=== PATIENT | female | born 1970 | race Caucasian/White ===

== ENCOUNTER → 2020-09-08 16:27 | Outpatient (BNVA) | payer OTHER, SELFPAY | PROVIDERS: Family Provider Nurse Practitioner; PCP Nurse Practitioner; Visit Provider Nurse Practitioner Family | DX: Z11.59 Encounter for screening for other viral diseases (principal) | CPT/HCPCS: 87635 ==

== ENCOUNTER 2020-09-10 08:23 | Emergency (ER) | payer OTHER, SELFPAY ==
[2020-09-10 08:30] VITALS: BP 165/98; PULSE 112; RESP 18; TEMP 37.3; O2SAT 99; BMI 25.6
--- NOTE | 2020-09-10 08:30 | ECG_ITS ---
[facility] Test Date: 2020-09-10 Pat Name: Raymond Suazo Department: Room: Gender: Female Attending Radiologist: : 1970 Requested By: Tresa Solomon Order Number: [id number] Reading MD: BRIAN DRAPER Measurements Intervals [place] Rate: 82 P: 35 KS: 131 QRS: 100 QRSD: 95 T: 85 QT: 383 QTc: 449 Interpretive Statements SINUS RHYTHM BORDERLINE RIGHT AXIS DEVIATION [QRS AXIS > 90] No previous ECG available for comparison Electronically Signed On 09-10-2020 18:27:22 CDT by BRIAN DRAPER [id number]
--- NOTE | 2020-09-10 08:30 | XRR_ITS ---
PROCEDURE INFORMATION: Exam: XR Chest, 1 View Exam date and time: 09/10/2020 8:59 AM Age: 50 years old Clinical indication: Shortness of breath; Additional info: Covid TECHNIQUE: Imaging protocol: XR of the chest Views: 1 view. COMPARISON: No relevant prior studies available. FINDINGS: Lungs: Hyperinflation, without acute airspace disease. Pleural space: No pleural effusion. Heart/Mediastinum: Epicardial fat without cardiomegaly. Bones/joints: Unremarkable. XR/XR chest 1V portable [id number] IMPRESSION: Hyperinflation, without acute airspace or pleural disease.
--- NOTE | 2020-09-10 08:51 | ED_ITS ---
HPI - COVID General: Chief Complaint: COVID symptoms Stated Complaint: Fever/SOB/Muscle Aches/Nausea Time Seen by Provider: 09/10/20 08:29 Triage information: Has fever, cough or shortness of breath . Exposure to COVID + person last 14 days History of Present Illness: HPI Narrative: This patient is a 50-year-old female who presents today with Covid symptoms. Her daughter lives in [place] and came to visit for the weekend. She was there Saturday and Saturday. On Saturday night her daughter started feeling ill and went to be tested the next day. Her test was positive. The patient started having symptoms on Saturday but she is not sure how much her symptoms are related to anxiety versus Covid. She has had a cough and some mild shortness of breath. She has had chest pain and said last night she felt she was having a heart attack. She is had pain across her upper back. She did have a fever on of 101. That is the only day that she is had fever. This morning her daughter who lives with her took her blood pressure and said it was very high. She is so anxious and concerned that she decided to come to the ER. She is on day 6 of symptoms. She does not have any comorbidities related to Covid. She did have a test done on 08 September but the results are still pending. Her lives with her and is also having a bad cough. Her daughter, son-in-law and 9-month-old grandchild are currently living with them while they are building a house. They all have had cough and or fever as well. They all of been tested but none of those results are back. The patient does have a history of anxiety and is extremely worried about all of her family members and herself. complaint: reported COVID exposure and has COVID symptoms Prior covid testing: yes, results pending at [facility] location COVID 19 common symptoms: positive fever(s), cough, dyspnea, fatigue, body aches and nausea; negative headache(s) COVID 19 other sytmptoms: positive chest pain Onset (ago): day(s) (6) Severity: moderate Treatment prior to arrival: acetaminophen and cold medicine (Benadryl) COVID Results: SARS-CoV-2 RNA (RT-PCR) Pending 09/08/20 16:09/08/20 Review of Systems General: Reports: 10 or more systems reviewed and unremarkable except in HPI and below Const: Reports: fever(s), body aches and fatigue Eyes: Denies: change in vision ENMT: Denies: odynophagia Card: Reports: chest pain Resp: Reports: dyspnea GI: Reports: nausea : Denies: flank pain or difficulty voiding Musc: Denies: neck pain or back pain Skin/Breast: Denies: rash Neuro: Denies: headache(s), numbness in extremities or weakness in extremities Psych: Reports: anxiety and sleeping less Edwin/Lymph: Denies: easy bruising or easy bleeding Physical Exam Const: COMMON NORMALS: patient oriented x3, no limitations and alert GENERAL APPEARANCE: cooperative and anxious (Tearful) HENMT: HEAD & SCALP: normal to inspection FACE & SINUS: normal facial exam Eye: GENERAL EYE: appearance normal, both eyes and all related structures Neck/C-Spine: COMMON NORMALS: supple, no meningeal signs and no JVD Chest: COMMONS NORMALS: normal inspection of the chest Resp: COMMON NORMALS: normal respiratory effort, No use of accessory muscles and clear to auscultation bilaterally AUSCULTATION: clear to auscultation bilaterally Cardio: COMMON NORMALS: no JVD, regular rate, regular rhythm and No murmurs present (Cardio) RATE: regular rate RHYTHM: regular rhythm GI: COMMON NORMALS: Normal to inspection, nondistended, normoactive bowel sounds present, Soft to palpation and non-tender INSPECTION: Yes normal to inspection AUSCULTATION: Yes normoactive bowel sounds PALPATION: Yes Soft to palpation Back/Pelvis: COMMON NORMALS: thoracic and lumbar spine normal to inspection Extremity: COMMON NORMALS: normal to inspection Neuro: COMMON NORMALS: patient oriented x3, moves all extremities, no focal motor deficits and no sensory deficits noted SENSORIUM/ORIENTATION: Yes alert MENINGEAL SIGNS: Yes no meningeal signs Psych: COMMON NORMALS: mental status grossly normal, cooperative and normal affect Skin: COMMON NORMALS: no rashes or lesions noted and turgor normal GENERAL SKIN EXAM: no rashes or lesions noted and turgor normal Course ED course: This patient's labs actually look remarkably normal. Her chest x- ray is completely normal. Her sats remained 99 to 100% while in the department. Her EKG and troponins are negative. I feel like most of her symptoms are related to anxiety although I am certain that she does have Covid. During her ER stay apparently her got his test results back and he is positive as well. We discussed managing anxiety. We discussed management of Covid at home. We discussed the various treatments that are recommended only once hypoxia is noted. I sent her home with a pulse ox of that she can monitor her own pulse ox as well as her family. She requested some Zofran for nausea and I did write her prescription for that. She was much calmer and hopefully reassured at the time of discharge. Vital Signs: Vital signs: Vital Signs Temperature 99.1 F 09/10/20 08:30 Pulse Rate 84 09/10/20 10:29 Respiratory Rate 18 09/10/20 10:29 Blood Pressure 127/87 09/10/20 10:29 Pulse Oximetry 98 09/10/20 10:29 MDM - COVID Lab Data Result diagrams: 09/10/20 08:56 09/10/20 08:56 Labs: Lab Results 09/10/20 09/10/20 09/10/20 Range/Units 08:56 08:56 08:56 WBC 8.0 (4.0-10.0) 10^3/uL RBC 4.67 (4.1-5.3) 10^6/uL Hgb 13.9 (11.5-15.3) g/dL Hct 42.8 (37.0-47.0) % MCV 91.6 (81-99) fL MCH 29.8 (28.0-34.0) pg MCHC 32.5 (30.0-36.0) g/dL RDW 12.4 (12.1-15.1) % Plt Count 393 (130-400) 10^3/cmm MPV 9.8 (7.4-10.4) fL Neut % (Auto) 80.7 % Lymph % (Auto) 12.8 % [place] % (Auto) 5.6 % Eos % (Auto) 0.3 % Baso % (Auto) 0.3 % Neut # (Auto) 6.46 (1.8-7.7) 10^3/uL Lymph # (Auto) 1.0 (0.8-4.8) 10^3/uL [place] # (Auto) 0.5 (0.2-0.9) 10^3/uL Eos # (Auto) 0.0 (0.0-0.8) 10^3/uL Baso # (Auto) 0.0 (0.0-0.1) 10^3/uL Nucleated RBC % (auto) 0 % Nucleated RBCs # 0.0 /100WBC Fibrinogen 346 (174-498) mg/dL D-Dimer 0.43 (0-0.59) ug/mIFEU Sodium 140 (136-145) mmol/L Potassium 3.8 (3.5-5.1) mmol/L Chloride 104 (98-107) mmol/L Carbon Dioxide 23 (22-29) mmol/L Anion Gap 16.8 (5-19) BUN 7 (6-20) mg/dL Creatinine 0.6 (0.5-0.9) mg/dL GFR Calculation 106.7 (90-130) mL/min Glucose 107 (65-115) mg/dL Calculated Osmolality 288 (285-295) mOsm/kg Lactic Acid (0.5-2.2) mmol/L Calcium 9.6 (8.5-10.5) mg/dL Ferritin 13 L (15-150) ng/mL Total Bilirubin 0.3 (0.15-1.2) mg/dL AST 15 (0-32) U/L ALT 11 (0-33) U/L Alkaline Phosphatase 92 (35-105) IU/L Lactate Dehydrogenase 193 (135-214) U/L Troponin T Baseline (0-10) ng/L C-Reactive Protein 1.3 (0.0-4.9) mg/L NT-Pro-B Natriuret Pep 13 (0-125) pg/mL Total Protein 7.8 (6.6-8.7) g/dL Albumin 4.8 (3.5-5.2) g/dL Globulin 3.0 (1.3-4.6) g/dL Procalcitonin 0.03 (0-0.5) ng/mL 09/10/20 09/10/20 Range/Units 08:56 08:56 WBC (4.0-10.0) 10^3/uL RBC (4.1-5.3) 10^6/uL Hgb (11.5-15.3) g/dL Hct (37.0-47.0) % MCV (81-99) fL MCH (28.0-34.0) pg MCHC (30.0-36.0) g/dL RDW (12.1-15.1) % Plt Count (130-400) 10^3/cmm MPV (7.4-10.4) fL Neut % (Auto) % Lymph % (Auto) % [place] % (Auto) % Eos % (Auto) % Baso % (Auto) % Neut # (Auto) (1.8-7.7) 10^3/uL Lymph # (Auto) (0.8-4.8) 10^3/uL [place] # (Auto) (0.2-0.9) 10^3/uL Eos # (Auto) (0.0-0.8) 10^3/uL Baso # (Auto) (0.0-0.1) 10^3/uL Nucleated RBC % (auto) % Nucleated RBCs # /100WBC Fibrinogen (174-498) mg/dL D-Dimer (0-0.59) ug/mIFEU Sodium (136-145) mmol/L Potassium (3.5-5.1) mmol/L Chloride (98-107) mmol/L Carbon Dioxide (22-29) mmol/L Anion Gap (5-19) BUN (6-20) mg/dL Creatinine (0.5-0.9) mg/dL GFR Calculation (90-130) mL/min Glucose (65-115) mg/dL Calculated Osmolality (285-295) mOsm/kg Lactic Acid 2.2 (0.5-2.2) mmol/L Calcium (8.5-10.5) mg/dL Ferritin (15-150) ng/mL Total Bilirubin (0.15-1.2) mg/dL AST (0-32) U/L ALT (0-33) U/L Alkaline Phosphatase (35-105) IU/L Lactate Dehydrogenase (135-214) U/L Troponin T Baseline 6 (0-10) ng/L C-Reactive Protein (0.0-4.9) mg/L NT-Pro-B Natriuret Pep (0-125) pg/mL Total Protein (6.6-8.7) g/dL Albumin (3.5-5.2) g/dL Globulin (1.3-4.6) g/dL Procalcitonin (0-0.5) ng/mL COVID Results: SARS-CoV-2 RNA (RT-PCR) Pending 09/08/20 16:27 09/08/20 Discharge Plan Discharge Patient Disposition: Home Clinical Impression: Suspected severe acute respiratory syndrome coronavirus 2 (SARS-CoV-2) infection, Anxiety Condition: Stable Prescriptions: New ondansetron HCl 4 mg tablet 4 mg PO Q6H PRN (Reason: nausea and vomiting) Qty: 10 RF: 0 No Action aspirin 81 mg Tablet,Delayed Release (Dr/Ec) 81 mg PO DAILY RF: 0 Tylenol Extra Strength 500 mg Tablet 1,000 mg PO PRN RF: 0 Benadryl 25 mg Capsule 12.5 mg PO PRN RF: 0 ibuprofen 200 mg Tablet 400 mg PO PRN RF: 0 Vitamin C 1 tab PO DAILY RF: 0 Vitamin D3 1 tab PO DAILY RF: 0 Discharge Orders: Discharge Order (Routine); Ordered 09/10/20 Ordered By: Tresa Park Referrals: Melissa Bnetley, [facility] [Primary Care Provider] - Discharge Diet: Usual diet Discharge Activity: Resume usual activity Patient Instructions: Viral Syndrome (ED) Activity Restrictions/Additional Instructions: Rest and drink plenty of fluids. Use the pulse oximeter to check your oxygen level (and that of your family members). Oxygen saturations less than 90 should prompt a visit to the ER. Return as well if feeling worse in any way. Some chxw-ltt-wnmdqfs medicines and supplements that may possibly help with reducing the severity of infection are zinc, famotidine or Pepcid, vitamin D. You can research the evidence behind these and decide for yourself whether you want to use them. You can use Tylenol for fever and body aches and cifr-pzh-yyxpwya cough medicines for other symptoms as well. Discharge Date/Time: 09/10/20 10:33 Coding Level of Care Code ED Softlines Supervisor for Marilia Fwd Exam Comprehensive
[2020-09-10] MEDS: dexamethasone 4 mg/mL INJ 6 MG IVP (09:00)
[2020-09-10 09:06] VITALS: O2SAT 96
[2020-09-10 09:10] LABS: Basophils % 0.3 %; Eosinophils % 0.3 %; Hematocrit 42.8 % (37.0-47.0); Hemoglobin 13.9 g/dL (11.5-15.3); Lymphocytes % 12.8 %; Mean Corpuscular HGB Conc 32.5 g/dL (30.0-36.0); Mean Corpuscular Hemoglobin 29.8 pg (28.0-34.0); Mean Corpuscular Volume 91.6 fL (81-99); Mean Platelet Volume 9.8 fL (7.4-10.4); Monocytes # 0.5 10^3/uL (0.2-0.9); Monocytes % 5.6 %; Neutrophils # 6.46 10^3/uL (1.8-7.7); Neutrophils % 80.7 %; Nucleated Red Blood Cells % 0 %; Platelet Count 393 10^3/cmm (130-400); Red Blood Count 4.67 10^6/uL (4.1-5.3); Red Cell Distribution Width 12.4 % (12.1-15.1)
[2020-09-10 09:22] VITALS: BP 153/95; PULSE 87; RESP 16; O2SAT 98
[2020-09-10 09:27] LABS: D Dimer 0.43 ug/mIFEU (0-0.59)
[2020-09-10 09:38] LABS: Lactic Sepsis W/Reflex 2.2 mmol/L (0.5-2.2); Troponin(5th) Baseline 6 ng/L (0-10)
[2020-09-10 09:44] LABS: NT Pro B Type Natriuretic Pept 13 pg/mL (0-125); Procalcitonin 0.03 ng/mL (0-0.5)
[2020-09-10 09:54] LABS: Fibrinogen 346 mg/dL (174-498)
[2020-09-10 09:55] LABS: Alanine Aminotransferase 11 U/L (0-33); Albumin Level 4.8 g/dL (3.5-5.2); Alkaline Phosphatase 92 IU/L (35-105); Aspartate Amino Transferase 15 U/L (0-32); Blood Urea Nitrogen 7 mg/dL (6-20); C Reactive Protein 1.3 mg/L (0.0-4.9); Calcium 9.6 mg/dL (8.5-10.5); Carbon Dioxide 23 mmol/L (22-29); Chloride 104 mmol/L (98-107); Ferritin 13 ng/mL (15-150); Glomerular Filtration Rate 106.7 mL/min (90-130); Glucose 107 mg/dL (65-115); Osmolality Calculated 288 mOsm/kg (285-295); Sodium 140 mmol/L (136-145); Total Bilirubin 0.3 mg/dL (0.15-1.2); Total Protein 7.8 g/dL (6.6-8.7)
[2020-09-10 09:59] LABS: Anion Gap 16.8 (5-19); Potassium 3.8 mmol/L (3.5-5.1)
[2020-09-10 10:01] LABS: Lactate Dehydrogenase 193 U/L (135-214)
[2020-09-10 10:29] VITALS: BP 127/87; PULSE 84; RESP 18; O2SAT 98
[2020-09-10 10:46] LABS: Reflex Lactate Order REFLEX LACTIC ORDERD
== END 2020-09-10 10:33 | disposition home or self-care (01) ==
PROVIDERS: Emergency Provider Emergency Medicine; PCP Nurse Practitioner
DX: Z20.828 Contact with and (suspected) exposure to other viral communicable diseases (principal); F41.9 Anxiety disorder, unspecified; Z79.82 Long term (current) use of aspirin
CPT/HCPCS: 12345; 71045; 80053; 82728; 83605; 83615; 83880; 84145; 84484; 85025; 85378; 85384; 86140; 93005; 96374; 96375; 99283; 99284; J1100

== ENCOUNTER → 2021-01-31 10:03 | Outpatient (BNVA) | payer OTHER, SELFPAY | PROVIDERS: PCP Nurse Practitioner; Visit Provider Nurse Practitioner Family | DX: R30.0 Dysuria (principal) | CPT/HCPCS: 81003; 87086 ==

== ENCOUNTER → 2021-04-28 09:45 | Outpatient (BNVA) | payer OTHER, SELFPAY | PROVIDERS: PCP Nurse Practitioner; Visit Provider Obstetrics & Gynecology | DX: N93.9 Abnormal uterine and vaginal bleeding, unspecified (principal); N84.1 Polyp of cervix uteri; Z12.4 Encounter for screening for malignant neoplasm of cervix; Z12.39 Encounter for other screening for malignant neoplasm of breast | CPT/HCPCS: 84443; 85025; 88175; 88305 ==

== ENCOUNTER → 2021-05-01 14:00 | Outpatient (BNVA) | payer OTHER, SELFPAY | PROVIDERS: PCP Nurse Practitioner; Visit Provider Obstetrics & Gynecology | DX: N93.9 Abnormal uterine and vaginal bleeding, unspecified (principal) | CPT/HCPCS: 76830; 85018 ==

== ENCOUNTER → 2021-05-04 14:04 | Outpatient (BNVA) | payer OTHER, SELFPAY | PROVIDERS: PCP Nurse Practitioner; Visit Provider Obstetrics & Gynecology | DX: N93.9 Abnormal uterine and vaginal bleeding, unspecified (principal) | CPT/HCPCS: 76830 ==

== ENCOUNTER → 2021-06-16 08:32 | Outpatient (BNVA) | payer OTHER, SELFPAY | PROVIDERS: PCP Nurse Practitioner; Visit Provider Obstetrics & Gynecology | DX: Z20.822 Contact with and (suspected) exposure to COVID-19 (principal); N84.0 Polyp of corpus uteri; N93.9 Abnormal uterine and vaginal bleeding, unspecified; R93.89 Abnormal findings on diagnostic imaging of other specified body structures | CPT/HCPCS: 87635 ==

== ENCOUNTER 2021-06-20 06:32 | Day surgery (SDC) | payer OTHER, SELFPAY ==
[2021-06-19 15:08] VITALS: BMI 24.7
[2021-06-20 06:54] VITALS: BP 145/88; PULSE 72; RESP 16; TEMP 36.6; O2SAT 100
[2021-06-20] MEDS: sodium chloride 0.9% 1,000 ML 30 ML IV (07:10)
[2021-06-20] MEDS: ketorolac 30 mg/mL INJ IVP (07:26)
--- NOTE | 2021-06-20 07:27 | P.ANESASSM_ITS ---
Pre-Anesthetic Assessment Pre-Anesthetic Assessment: Height/Weight: Height 1.6 m Weight 63.503 kg Temp Pulse Resp BP Pulse Ox 97.9 F 72 16 145/88 100 06/20/21 06:54 06/20/21 06:54 06/20/21 06:54 06/20/21 06:54 06/20/21 06:54 Preop Diagnosis: thickened endometrium, endometrial polyp Proposed Procedure: Operation Date: 06/20/21 08:20 Proposed Procedures p Hysteroscopy w/ Myosure [id number] n93.9 n84.0 r93.89(Not Applicable) - Jessica Siddiqui MD s Dilation And Curettage (D&C)(Not Applicable) - Jessica Siddiqui MD Was Beta Mallika taken within 24 hours: N/A Was Clonidine taken within 24 hours: N/A Last intake: Intake Last Liquid Date 06/19/21 Last Liquid Time 20:30 Last Solid Date 06/19/21 Last Solid Time 18:00 Social: Social History: No alcohol and No tobacco Exam: Pre-Anes Outpt Exam: alert, oriented x 3, clear to auscultation bilaterally and regular rate & rhythm Airway: Submandibular: WNL Cervical ROM: WNL MP: 2 Dentition: Full History/ROS: No significant history except as noted CV/HEM: CV/HEM: Anemia Comments: Abnormal uterine bleeding Anesthetic Plan: ASA status: 2 Anesthesia: General Risk of > 500 ml blood loss (7ml/kg in children): No Meds/Allergies 2 Current Medications: Current Medications Generic Name Dose Route Start Last Admin Trade Name Freq PRN Reason Stop Dose Admin Sodium Chloride 1,000 mls @ 30 ml s/hr 06/20/21 06:45 06/20/21 07:10 Sodium Chloride 0.9% IV 06/21/21 06:44 30 mls/hr .Q24H FABIO Administration PFSH Anesthesia PFSH: Family History Father Cancer kidney Diabetes Hyperlipidemia Hypertension Family/Other No problems noted. Mother , age 32 complications from tumor Brain tumor Brother Hyperlipidemia Sister Hyperlipidemia Grandmother Stroke Paternal Denies family history of Ovarian cyst Clotting disorder Thyroid disease Social History Smoking and tobacco status: never smoked Second hand smoke exposure: No Alcohol intake: never Adopted: No Caregiver/support person: Yes Lives independently: Yes Marital status: service: No History of recent travel: No Special berenice needs: No Agree to transfusion: Yes Female Reproductive History: Date of last menstrual period: 05/13/21 Data Anesthesia Cardiac Studies: No Data to Display
[2021-06-20 07:33] LABS: OR HCG Qualitative Urine Negative (Negative)
[2021-06-20 07:47] LABS: Basophils % 0.7 %; Eosinophils # 0.1 10^3/uL (0.0-0.8); Eosinophils % 1.6 %; Hematocrit 40.9 % (37.0-47.0); Lymphocytes # 1.5 10^3/uL (0.8-4.8); Lymphocytes % 26.8 %; Mean Corpuscular HGB Conc 31.8 g/dL (30.0-36.0); Mean Corpuscular Volume 94.2 fL (81-99); Mean Platelet Volume 10.6 fL (7.4-10.4); Monocytes # 0.4 10^3/uL (0.2-0.9); Monocytes % 7.7 %; Neutrophils # 3.58 10^3/uL (1.8-7.7); Neutrophils % 62.8 %; Nucleated Red Blood Cells % 0 %; Platelet Count 260 10^3/cmm (130-400); Red Blood Count 4.34 10^6/uL (4.1-5.3); White Blood Count 5.7 10^3/uL (4.0-10.0)
[2021-06-20 08:17] LABS: Anion Gap 12.1 (5-19); Blood Urea Nitrogen 8 mg/dL (6-20); Calcium 8.3 mg/dL (8.5-10.5); Carbon Dioxide 25 mmol/L (22-29); Chloride 106 mmol/L (98-107); Glomerular Filtration Rate 131.1 mL/min (90-130); Glucose 86 mg/dL (65-115); Osmolality Calculated 286 mOsm/kg (285-295); Potassium 4.1 mmol/L (3.5-5.1); Sodium 139 mmol/L (136-145)
--- NOTE | 2021-06-20 09:54 | W.PM.OPSUD ---
Surgery/Procedure H&P Update DATE OF PROCEDURE: June 20, 2021 DATE H&P PERFORMED: 06/16/21 H&P UPDATE INFORMATION: I have reviewed H&P completed within last 30 days, I have examined patient prior to procedure and No changes to prior documentation PREOP DIAGNOSIS: thickened endometrium, endometrial polyp PLANNED PROCEDURE: Operation Date: 06/20/21 08:20 Proposed Procedures p Hysteroscopy w/ Myosure [id number] n93.9 n84.0 r93.89(Not Applicable) - Jessica Siddiqui MD s Dilation And Curettage (D&C)(Not Applicable) - Jessica Siddiqui MD
--- NOTE | 2021-06-20 10:41 | PM.DCS ---
Discharge Providers Date of Discharge: June 20, 2021 Attending Provider at Discharge: Jessica Siddiqui MD Diagnoses at Discharge Discharge Diagnosis (1) Postoperative state: Status: Acute Reason for Visit Reason for Visit: hysteroscopy d and c Hospital Course Hospital Course The patient was admitted for surgery. She did well postoperatively and was ready for discharge. Physical Exam Urinary Catheter Management^: Straight: Cath Placed During This Visit: no Discharge Data Data Completed and Pending: Pending at discharge Category Date Time Status ES surgery / GI i mages Routine Exams 06/20/21 09:40 Taken Urine Culture [facility] 06/20/21 07:00 Received Labs from last 24 hours 06/20/21 06/20/21 06/20/21 07:31 07:11 07:11 WBC 5.7 RBC 4.34 Hgb 13.0 Hct 40.9 MCV 94.2 MCH 30.0 MCHC 31.8 RDW 14.0 Plt Count 260 MPV 10.6 H Neut % (Auto) 62.8 Lymph % (Auto) 26.8 [place] % (Auto) 7.7 Eos % (Auto) 1.6 Baso % (Auto) 0.7 Neut # (Auto) 3.58 Lymph # (Auto) 1.5 [place] # (Auto) 0.4 Eos # (Auto) 0.1 Baso # (Auto) 0.0 Nucleated RBC % (a uto) 0 Nucleated RBCs # 0.0 Sodium 139 Potassium 4.1 Chloride 106 Carbon Dioxide 25 Anion Gap 12.1 BUN 8 Creatinine 0.5 GFR Calculation 131.1 H Glucose 86 Calculated Osmolal ity 286 Calcium 8.3 L Urine HCG, Qual Negative Vitals: Last Vital Signs Temp 97.9 F 06/20/21 06:54 Pulse 72 06/20/21 06:54 Resp 16 06/20/21 06:54 BP 145/88 06/20/21 06:54 Pulse Ox 100 06/20/21 06:54 Discharge Plan Discharge Patient Disposition: Home Condition: Stable Discharge Orders: Discharge Order (Routine); Ordered 06/20/21 Ordered By: Jessica Siddiqui Discharge Attestations Time Spent in Discharge Care*: less than 30 min Quality Metrics Clinical Quality Measures During this hospital stay, did patient experience: None Coding Level of Care Code Acute Chg [facility] note Diagnoses Postoperative state Z98.890
--- NOTE | 2021-06-20 10:42 | P.OP_ITS ---
Operative Report Date of procedure: June 20, 2021 Pre-op Diagnosis: thickened endometrium, endometrial polyp Post-op diagnosis: same Post-op Findings: thickened endometrium Procedure Done: hysteroscopy, dilation and curettage with myosure Specimens removed/disposition: endometrial curettings to pathology Surgeon: Jessiac Siddiqui Anesthesia: MAC Estimated blood loss (mL): 5 IV fluids (mL): 400 Urine output (mL): 10 Complications: none Findings: Thickened endometrium with polyps and fibroids hysteroscopy deficit of 450 ml Condition: stable Disposition: PACU Procedure: The patient was taken to the operating room where monitored anesthesia was administered and to be adequate. She was prepped and draped in the normal sterile fashion in the dorsal lithotomy position in [facility]. A weighted speculum was placed into the vagina and the anterior lip of the cervix grasped with a single-tooth tenaculum. The uterus was sounded to 9 cm. The cervix was dilated to 16 [place]. The hysteroscope was advanced into the endometrial cavity. There was excessive tissue consisting of polyps and fibroids visualized. The MyoSure device was activated and the tissue was removed. Pictures were taken pre and post procedure. All instruments were removed. The patient tolerated the procedure well. Sponge lap and needle counts were correct x3. She was taken to the recovery room in stable condition.
[2021-06-20 10:46] VITALS: BP 116/68; PULSE 72; RESP 17; TEMP 36.7; O2SAT 97
[2021-06-20 10:51] VITALS: BP 111/72; PULSE 62; RESP 17; TEMP 36.7; O2SAT 98
[2021-06-20 11:01] VITALS: BP 119/76; PULSE 57; RESP 16; TEMP 36.7; O2SAT 98
[2021-06-20 11:16] VITALS: BP 110/74; PULSE 53; RESP 16; O2SAT 96
--- NOTE | 2021-06-20 16:00 | ANE.PACU2 ---
Inpatient post-anesthesia follow up: Airway intact: Yes Vital signs: Temperature 98.1 F Pulse Rate 53 Respiratory Rate 16 Blood Pressure 110/74 Pulse Oximetry 96 Oxygen Delivery Me thod Room Air Oxygen Flow Rate Fraction of Inspir ed Oxygen Hydration adequate: Yes Nausea and vomiting: No Pain level: 2 Mental status: Baseline
== END 2021-06-20 11:30 | disposition home or self-care (01) ==
PROVIDERS: Anesthesiology; Visit Provider Obstetrics & Gynecology
PROC: 0UDB8ZZ Extraction of Endometrium, Via Natural or Artificial Opening Endoscopic (ICD-10-PCS; CPT 58558; principal; 2021-06-20 08:20)
PROC: (CPT 58120; 2021-06-20 08:20)
DX: N84.0 Polyp of corpus uteri (principal); R93.89 Abnormal findings on diagnostic imaging of other specified body structures
CPT/HCPCS: 58558; 80048; 81025; 84703; 85025; 87077; 87086; 87186; 88305; 96374; J0690; J1885; J2250; J2405; J2704; J3010; J7030

== ENCOUNTER → 2021-06-21 14:04 | Outpatient (BNVA) | payer OTHER, SELFPAY | PROVIDERS: Visit Provider Obstetrics & Gynecology | DX: R30.0 Dysuria (principal) | CPT/HCPCS: 81000; 87086 ==

== ENCOUNTER → 2021-11-09 09:59 | Outpatient (BNVA) | payer OTHER, SELFPAY | PROVIDERS: Visit Provider Family Medicine | DX: Z83.438 Family history of other disorder of lipoprotein metabolism and other lipidemia (principal); Z86.16 Personal history of COVID-19 | CPT/HCPCS: 80053; 80061; 84443; 85025 ==

== ENCOUNTER → 2022-02-19 09:11 | Outpatient (BNVA) | payer OTHER, SELFPAY | PROVIDERS: Visit Provider Family Medicine | DX: E78.5 Hyperlipidemia, unspecified (principal) | CPT/HCPCS: 80053; 80061; 85025 ==

== ENCOUNTER → 2022-07-09 08:40 | Outpatient (BNVA) | payer OTHER, SELFPAY | PROVIDERS: Visit Provider Nurse Practitioner Family | DX: E78.5 Hyperlipidemia, unspecified (principal); R03.0 Elevated blood-pressure reading, without diagnosis of hypertension; I10 Essential (primary) hypertension; F41.9 Anxiety disorder, unspecified | CPT/HCPCS: 80053; 80061; 84443; 85025 ==

== ENCOUNTER 2022-07-30 14:51 | Outpatient (CLI) | payer OTHER, SELFPAY ==
--- NOTE | 2022-07-30 14:58 | MM_ITS ---
WS: [id number] BILATERAL 3D TOMOSYNTHESIS DIGITAL SCREENING MAMMOGRAPHY WITH CAD CLINICAL INFORMATION: Z12.39 - Encounter for other screening for malignant neop... HISTORY: Screening mammogram. No current complaints. COMPARISON: None. TECHNIQUE: Bilateral CC and MLO views. FINDINGS: The breasts are composed of heterogeneous fibroglandular density tissue, which can limit the detectio n of small underlying mass lesions. No suspicious mass, asymmetry, calcifications, or architectural d istortion. No evidence of malignancy. Incidental punctate calcifications. MM/[place] [id number] IMPRESSION: BI-RADS: 2-Benign FOLLOW UP: 1 Year Follow-up Recommend return to annual screening mammography.
== END 2022-07-30 14:52 | disposition home or self-care (01) ==
LOC: RAD 14:53
PROVIDERS: PCP Family Medicine; Visit Provider Obstetrics & Gynecology
DX: Z12.31 Encounter for screening mammogram for malignant neoplasm of breast (principal)
CPT/HCPCS: 77063; 77067

== ENCOUNTER → 2022-12-13 10:56 | Outpatient (BNVA) | payer OTHER, SELFPAY | PROVIDERS: PCP Family Medicine; Visit Provider Nurse Practitioner Family | DX: E78.5 Hyperlipidemia, unspecified (principal) | CPT/HCPCS: 80053; 80061; 83735; 85025 ==

== ENCOUNTER → 2023-04-04 08:55 | Outpatient (BNVA) | payer OTHER, SELFPAY | PROVIDERS: PCP Family Medicine; Visit Provider Dermatology | DX: L72.0 Epidermal cyst (principal) | CPT/HCPCS: 11402; 12032 ==

== ENCOUNTER → 2023-04-18 08:02 | Outpatient (BNVA) | payer OTHER, SELFPAY | PROVIDERS: PCP Family Medicine; Visit Provider Dermatology | DX: Z48.02 Encounter for removal of sutures (principal) | CPT/HCPCS: 99212 ==

== ENCOUNTER → 2024-02-26 16:33 | Outpatient (BNVA) | payer OTHER, SELFPAY | PROVIDERS: PCP Family Medicine; Visit Provider Nurse Practitioner Family | DX: R07.0 Pain in throat (principal) | CPT/HCPCS: 87071; 87880 ==

== ENCOUNTER → 2024-03-12 08:35 | Outpatient (BNVA) | payer OTHER, SELFPAY | PROVIDERS: PCP Family Medicine; Visit Provider Nurse Practitioner Family | DX: E78.5 Hyperlipidemia, unspecified (principal); I10 Essential (primary) hypertension | CPT/HCPCS: 80053; 80061; 82306; 84443; 85025 ==

== ENCOUNTER → 2024-12-09 10:04 | Outpatient (BNVA) | payer OTHER, SELFPAY | PROVIDERS: PCP Family Medicine; Visit Provider Nurse Practitioner Family | DX: R05.9 Cough, unspecified (principal) | CPT/HCPCS: 87400 ==

== ENCOUNTER → 2025-01-08 10:16 | Outpatient (BNVA) | payer OTHER, SELFPAY | PROVIDERS: PCP Nurse Practitioner Family; Visit Provider Nurse Practitioner Family | DX: I10 Essential (primary) hypertension (principal); R19.7 Diarrhea, unspecified | CPT/HCPCS: 80053; 82962; 85025 ==

== ENCOUNTER → 2025-01-11 12:16 | Outpatient (BNVA) | payer OTHER, SELFPAY | PROVIDERS: PCP Nurse Practitioner Family; Visit Provider Nurse Practitioner Family | DX: R19.7 Diarrhea, unspecified (principal) | CPT/HCPCS: 87493 ==

== ENCOUNTER → 2025-01-26 08:38 | Outpatient (BNVA) | payer OTHER, SELFPAY | PROVIDERS: PCP Nurse Practitioner Family; Visit Provider Nurse Practitioner Family | DX: R73.9 Hyperglycemia, unspecified (principal) | CPT/HCPCS: 83036 ==